=== PATIENT | female | born 1980 | race Asian ===

== ENCOUNTER → 2017-04-25 | Outpatient (CLI) | payer BC ==
[~2017-04-25] MED LIST: DOCO200C2; MTR600X PO; OXYC5TAB PO; PRENTAB26 PO
--- NOTE | 2017-04-25 08:53 | DIAGNOSTIC IMAGING REPORT ---
ABDOMEN LIMITED (US) HISTORY: Pain. Nausea. RUQ PAIN, CHANGE IN BOWEL HABIT. COMPARISON: None. FINDINGS: Pancreas: The pancreas demonstrates a normal echotexture. Liver: Unremarkable. Gallbladder: No gallbladder wall thickening. No gallstones. CBD: 4 mm Right kidney: No hydronephrosis. IMPRESSION: No significant abnormality identified within the within the right upper quadrant. The above report was generated using voice recognition software. It may contain grammatical, syntax or spelling errors. Electronically signed by: Reese Kirkpatrick M.D. 04/25/2017 8:51 AM Dictated Date/Time: 04/25/2017 8:51 AM
== END | disposition home or self-care (01) ==
LOC: C.ULTRBC 08:25
PROVIDERS: ATTEND Nurse Practitioner Family
DX: R10.11 Right upper quadrant pain (principal); R19.4 Change in bowel habit